=== PATIENT | female | born 1995 | race Caucasian/White ===

== ENCOUNTER 2016-11-09 15:26 | Outpatient (CLI) | payer OTHER ==
[2016-11-09 16:21] LABS: HEMATOCRIT 34.6 % (36.0-47.0); HEMOGLOBIN 11.8 g/dL (12.0-15.5); HGB HCT DIFFERENCE 0.8; LYMPHOCYTES % (AUTO) 14.2 % (13-45); MEAN CORPUSCULAR HEMOGLOBIN 29.9 pg (27.0-33.4); MEAN CORPUSCULAR HGB CONC 34.3 g/dL (32.0-36.0); MEAN CORPUSCULAR VOLUME 87 fl (80-97); MONOCYTES % (AUTO) 6.3 % (3-13); RED BLOOD COUNT 3.96 10^6/uL (3.72-5.28); RED CELL DISTRIBUTION WIDTH 13.8 % (11.5-14.0); SEGMENTED NEUTROPHILS % (AUTO) 78.4 % (42-78); WHITE BLOOD COUNT 13.5 10^3/uL (4.0-10.5)
[2016-11-09 16:22] LABS: ABSOLUTE BASOPHILS # (AUTO) 0.1 10^3/uL (0.0-0.2); ABSOLUTE EOSINOPHILS # (AUTO) 0.1 10^3/uL (0.0-0.6); ABSOLUTE LYMPHOCYTES (AUTO) 1.9 10^3/uL (0.5-4.7); ABSOLUTE MONOCYTES (AUTO) 0.9 10^3/uL (0.1-1.4); ABSOLUTE NEUT (AUTO) 10.6 10^3/uL (1.7-8.2); BASOPHILS % (AUTO) 0.5 % (0-2); EOSINOPHILS % (AUTO) 0.6 % (0-6)
[2016-11-09 16:40] LABS: ALANINE AMINOTRANSFERASE 22 U/L (9-52); ALBUMIN 3.5 g/dL (3.5-5.0); ALKALINE PHOSPHATASE 189 U/L (38-126); ANION GAP 11 (5-19); ASPARTATE AMINO TRANSFERASE 15 U/L (14-36); BILIRUBIN,DIRECT 0.1 mg/dL (0.0-0.4); BILIRUBIN,TOTAL 0.5 mg/dL (0.2-1.3); BLOOD UREA NITROGEN 13 mg/dL (7-20); CALCIUM 9.4 mg/dL (8.4-10.2); CARBON DIOXIDE 22 mmol/L (22-30); CHLORIDE 107 mmol/L (98-107); CREATININE RESULT 0.64 mg/dL (0.52-1.25); GLUCOSE 75 mg/dL (75-110); LDH 400 U/L (313-618); POTASSIUM 4.3 mmol/L (3.6-5.0); SODIUM 139.9 mmol/L (137-145); TOTAL PROTEIN 6.3 g/dL (6.3-8.2); URIC ACID 5.3 mg/dL (2.5-6.2)
[2016-11-09 17:57] LABS: APPEARANCE,URINE SLIGHTLY-CLOUDY; BILIRUBIN,URINE NEGATIVE (NEGATIVE); GLUCOSE, URINE NEGATIVE (NEGATIVE); KETONES,URINE NEGATIVE (NEGATIVE); LEUKOCYTE ESTERASE,URINE MODERATE (NEGATIVE); NITRITE,URINE NEGATIVE (NEGATIVE); PROTEIN,URINE NEGATIVE (NEGATIVE); URINE SPECIFIC GRAVITY 1.009; UROBILINOGEN,URINE NEGATIVE mg/dL (<2.0)
--- NOTE | 2016-11-09 18:02 | L&D General Admission ---
General Admit Datetime Report Generated by CPN: 11/09/2016 18:00 INFORMATION Patient Age: 21 (10/13/2016 16:08:QS system process) EDC: 12/20/2016 00:00 (11/09/2016 15:36:Mariza Pringle RN) : 1 (11/09/2016 15:36:Mariza Pringle RN) Para: 0 (11/09/2016 15:36:Mariza Pringle RN) Term: 0 (11/09/2016 15:36:Mariza Pringle RN) : 0 (11/09/2016 15:36:Mariza Pringle RN) Spontaneous Abortions: 0 (11/09/2016 15:36:Mariza Pringle RN) Induced Abortions: 0 (11/09/2016 15:36:Mariza Pringle RN) Livin (11/09/2016 15:36:Mariza Pringle RN) Cesareans: 0 (11/09/2016 15:36:Mariza Pringle RN) VBACs: 0 (11/09/2016 15:36:Mariza Pringle RN) Ectopic: 0 (11/09/2016 15:36:Mariza Pringle RN) Multiple Births: 0 (11/09/2016 15:36:Mariza Pringle RN) Baby, Number in Womb: 1 (11/09/2016 15:36:Mariza Pringle RN) CARE Primary [employer] Dispatcher: [employer] (11/09/2016 15:36:Mariza Pringle RN) Adequate Care: Yes (11/09/2016 15:36:Mariza Pringle RN) ALLERGIES Medication Allergies: No Known Drug Allergies (11/09/2016) (11/09/2016 15:46:QS system process) COMMUNICATION Primary Language: South African (11/09/2016 15:36:Mariza Pringle RN) Medical Tx Preferred Language: [place] African (11/09/2016 15:36:Mariza Pringle RN) Communication Barrier(s): None (11/09/2016 15:36:Mariza Pringle RN) DEMOGRAPHICS Address: [address] [place] [id number] (10/13/2016 16:08:QS system process) Zipcode: [address] (10/13/2016 16:08:QS system process) Home (10/13/2016 16:08:QS system process) N: [id number] (10/13/2016 16:08:QS system process) Next of Kin Name: JACINDA ZAMARRIPA (10/13/2016 16:08:QS system process) Next of Kin (10/13/2016 16:08:QS system process) Next of Kin Relationship: SPO (10/13/2016 16:08:QS system process) Date of : 1995 (10/13/2016 16:08:QS system process) Marital Status: (10/13/2016 16:08:QS system process) Sex: Female (10/13/2016 16:08:QS system process) Race: (10/13/2016 16:08:QS system process) Ethnicity: Non- or (10/13/2016 16:08:QS system process) Rastafarian: None (10/13/2016 16:08:QS system process) LABS Blood Type: A Positive (11/09/2016 15:36:Mariza Pringle RN) Antibody Screen: NEGATIVE (11/09/2016 15:36:Mariza Pringle RN) Hemoglobin: 11.8 L (11/09/2016 15:57:QS system process) Hematocrit: 34.6 L (11/09/2016 15:57:QS system process) MCV: 87 (11/09/2016 15:57:QS system process) RPR/VDRL: Nonreactive (11/09/2016 15:36:Mariza Pringle RN) HIV Exposure Test: Negative (11/09/2016 15:36:Mariza Pringle RN) Hepatitis B: Negative (11/09/2016 15:36:Mariza Pringle RN) Rubella: Non-Immune (11/09/2016 15:36:Mariza Pringle RN) MEDICAL HISTORY Diabetes Type: Gestational Diabetes (11/09/2016 15:36:Mariza Pringle RN) Other Medical Diseases: Yes (11/09/2016 15:36:Mariza Pringle RN) Details of Med/Surg Hx: GDM OBESITY (11/09/2016 15:36:Mariza Pringle RN)
[2016-11-09 18:18] LABS: URINE BARBITURATES SCREEN NEGATIVE; URINE METHADONE SCREEN NEGATIVE; URINE OPIATES LOW NEGATIVE; URINE PHENCYCLIDINE SCREEN NEGATIVE
--- NOTE | 2016-11-09 20:01 | L&D Flow Sheet ---
LD Flowsheet Datetime Report Generated by CPN: 11/09/2016 20:00 Datetime: 11/09/2016 19:52 NBP Sys/Terri/Mean (mmHg): 97 (QS system process) : 54 (QS system process) : 69 (QS system process) Pulse: 78 (QS system process) LaborFlag: Antepartum (QS system process) Datetime: 11/09/2016 19:38 NBP Sys/Terri/Mean (mmHg): 90 (QS system process) : 62 (QS system process) : 71 (QS system process) Pulse: 71 (QS system process) LaborFlag: Antepartum (QS system process) Datetime: 11/09/2016 19:23 NBP Sys/Terri/Mean (mmHg): 95 (QS system process) : 64 (QS system process) : 76 (QS system process) Pulse: 81 (QS system process) LaborFlag: Antepartum (QS system process) Datetime: 11/09/2016 19:15 Communication Comments: Report given to Esha Amos RN. Care relinquished at this time. (Marci Gillette RN) Datetime: 11/09/2016 19:00 Uterine Activity Monitor Mode: External (Marci Chellyfka, RN) Uterine Activity Monitor Mode: External; Palpation (Marci Gillette, RN) Monitor Interventions for UA: [place] Adjusted (Marci Gillette, RN) Frequency (min): UTD (Marci Spauldingfbita, RN) Frequency (min): No ctxs noted (Marci Johannahefka, RN) Quality: Mild (Marci Johannahefka, RN) Resting Tone (Palpate): Relaxed (Marci Gillette, RN) Contraction Comments: Pt states she feels occassional tightening but no pain. (Marci Spauldingfbita, RN) Assessment A Monitor Mode: External US (Marci Marhefka, RN) FHR Baseline Rate : 130 (Marci Marhefka, RN) FHR Baseline Changes: No Baseline Change (Marci Marhefka, RN) Variability: Moderate 6-25 bpm (Marci Marhefka, RN) Accelerations: 15X15 (Marci Marhefka, RN) Decelerations: None (Marci Marhefka, RN) Datetime: 11/09/2016 18:52 Patient Care I/O Interventions: Up to BR (Marci Marhefka, RN) Datetime: 11/09/2016 18:38 NBP Sys/Terri/Mean (mmHg): 98 (QS system process) : 60 (QS system process) : 74 (QS system process) Pulse: 82 (QS system process) LaborFlag: Antepartum (QS system process) Datetime: 11/09/2016 18:30 Uterine Activity Monitor Mode: External; Palpation (Marci Gillette RN) Frequency (min): 4-7 (Marci Gillette RN) Quality: Mild (Marci Gillette RN) Duration (sec): 60-100 (Marci Gillette RN) Resting Tone (Palpate): Relaxed (Marci Marhefka, RN) Assessment A Monitor Mode: External US (Marci Marhefka, RN) FHR Baseline Rate : 135 (Marci Marhefka, RN) FHR Baseline Changes: No Baseline Change (Marci Marhefka, RN) Variability: Moderate 6-25 bpm (Marci Marhefka, RN) Accelerations: 15X15 (Marci Marhefka, RN) Decelerations: None (Marci Marhefka, RN) Datetime: 11/09/2016 18:23 NBP Sys/Terri/Mean (mmHg): 103 (QS system process) : 59 (QS system process) : 76 (QS system process) Pulse: 76 (QS system process) LaborFlag: Antepartum (QS system process) Datetime: 11/09/2016 18:13 Provider Reviewed Strip: Yes (Marci Gillette RN) Communication Communication: Report Given to @ Dr. Frank (Marci Gillette RN) Notification Reason: Status Update; Status; Labor Status; Uterine Activity; Pain; Lab/Diagnostic Study (Marci Gillette RN) Communication Comments: Dr. Frank on notified of late deceleration and lab results, order received to watch patient for 2 more hours after late deceleration and discharge home if no more lates occure in that time. (Marci Gillette RN) Datetime: 11/09/2016 18:08 NBP Sys/Terri/Mean (mmHg): 113 (QS system process) : 68 (QS system process) : 83 (QS system process) Pulse: 83 (QS system process) LaborFlag: Antepartum (QS system process) Datetime: 11/09/2016 18:00 Uterine Activity Monitor Mode: External (Marci Marhefka, RN) Frequency (min): 8 (Marci Marhefka, RN) Quality: Mild (Marci Marhefka, RN) Duration (sec): 80-150 (Marci Marhefka, RN) Resting Tone (Palpate): Relaxed (Marci Marhefka, RN) Assessment A Monitor Mode: External US (Marci Marhefka, RN) FHR Baseline Rate : 135 (Marci Marhefka, RN) FHR Baseline Changes: No Baseline Change (Marci Marhefka, RN) Variability: Moderate 6-25 bpm (Marci Marhefka, RN) Accelerations: 15X15 (Marci Marhefka, RN) Decelerations: None (Marci Marhefka, RN) Datetime: 11/09/2016 17:52 NBP Sys/Terri/Mean (mmHg): 107 (QS system process) : 72 (QS system process) : 84 (QS system process) Pulse: 76 (QS system process) LaborFlag: Antepartum (QS system process) Datetime: 11/09/2016 17:37 NBP Sys/Terri/Mean (mmHg): 111 (QS system process) : 75 (QS system process) : 85 (QS system process) Pulse: 75 (QS system process) LaborFlag: Antepartum (QS system process) Datetime: 11/09/2016 17:30 Uterine Activity Monitor Mode: External (Marci Marhefka, RN) Frequency (min): 6-7 (Marci Marhefka, RN) Quality: Mild (Marci Marhefka, RN) Duration (sec): 70-100 (Marci Marhefka, RN) Resting Tone (Palpate): Relaxed (Marci Marhefka, RN) Assessment A Monitor Mode: External US (Marci Marhefka, RN) FHR Baseline Rate : 140 (Marci Marhefka, RN) FHR Baseline Changes: No Baseline Change (Marci Marhefka, RN) Variability: Minimal - Undetectable to <=5 bpm (Marci Marhefka, RN) Accelerations: 15X15 (Marci Marhefka, RN) Decelerations: Late (Marci Marhefka, RN) Datetime: 11/09/2016 17:22 NBP Sys/Terri/Mean (mmHg): 110 (QS system process) : 73 (QS system process) : 87 (QS system process) Pulse: 72 (QS system process) LaborFlag: Antepartum (QS system process) Datetime: 11/09/2016 17:07 NBP Sys/Terri/Mean (mmHg): 110 (QS system process) : 73 (QS system process) : 87 (QS system process) Pulse: 71 (QS system process) LaborFlag: Antepartum (QS system process) Datetime: 11/09/2016 17:00 Uterine Activity Monitor Mode: External; Palpation (Marci Marhefka, RN) Frequency (min): 4 (Marci Marhefka, RN) Quality: Mild (Marci Marhefka, RN) Duration (sec): 80-100 (Marci Marhefka, RN) Resting Tone (Palpate): Relaxed (Marci Marhefka, RN) Assessment A Monitor Mode: External US (Marci Marhefka, RN) FHR Baseline Rate : 135 (Marci Marhefka, RN) FHR Baseline Changes: No Baseline Change (Marci Marhefka, RN) Variability: Moderate 6-25 bpm (Marci Marhefka, RN) Accelerations: 15X15 (Marci Marhefka, RN) Decelerations: None (Marci Marhefka, RN) Datetime: 11/09/2016 16:52 NBP Sys/Terri/Mean (mmHg): 111 (QS system process) : 73 (QS system process) : 86 (QS system process) Pulse: 75 (QS system process) LaborFlag: Antepartum (QS system process) Datetime: 11/09/2016 16:50 Monitor Interventions for UA: [place] Adjusted (Marci Marhefka, RN) Datetime: 11/09/2016 16:42 Vaginal Exam Vaginal Bleeding: None (Marci Gillette RN) Cervix, Consistency: Moderate (Marci Gillette RN) Cervix, Position: Posterior (Marci Gillette RN) Vaginal Exam Comments: ft/thick/high (Marci Gillette RN) Datetime: 11/09/2016 16:39 NBP Sys/Terri/Mean (mmHg): 113 (QS system process) : 71 (QS system process) : 86 (QS system process) Pulse: 75 (QS system process) Temperature (F): 98.2 (Marci Gillette RN) Temperature (C): 36.8 (QS system process) Temperature Route: Oral (Marci Gillette RN) LaborFlag: Antepartum (QS system process) Datetime: 11/09/2016 16:30 Uterine Activity Monitor Mode: External; Palpation (Marci Marhefka, RN) Frequency (min): 7 (Marci Marhefka, RN) Quality: Mild (Marci Marhefka, RN) Duration (sec): 60-100 (Marci Marhefka, RN) Resting Tone (Palpate): Relaxed (Marci Marhefka, RN) Assessment A Monitor Mode: External US (Marci Marhefka, RN) FHR Baseline Rate : 140 (Marci Marhefka, RN) FHR Baseline Changes: No Baseline Change (Marci Marhefka, RN) Variability: Moderate 6-25 bpm (Marci Marhefka, RN) Accelerations: 15X15 (Marcichris Spauldingfbita, RN) Decelerations: None (Marcichris Spencerhelder, RN) Pain Pain Scale: 1 (Marci Gillette, RN) Pain Presence: Intermittent (Marci Spauldingfbita, RN) Pain Type: Pressure (Marci Spauldingfbita, RN) Pain Location: Abdomen (Marci Gillette, RN) Pain Goal: 0 (Marci Gillette, RN) Pain Relief Measures: Comfort Measures (Marci Spauldingfbita, RN) Pain Coping: Talking Through Contractions (Marci Gillette, RN) LaborFlag: Antepartum (QS system process) Datetime: 11/09/2016 16:20 Patient Care I/O Interventions: Up to BR (Marci Marhefka, RN) Datetime: 11/09/2016 16:07 NBP Sys/Terri/Mean (mmHg): 103 (QS system process) : 75 (QS system process) : 85 (QS system process) Pulse: 69 (QS system process) LaborFlag: Antepartum (QS system process) Datetime: 11/09/2016 16:00 Uterine Activity Monitor Mode: External; Palpation (Marci Marhefka, RN) Frequency (min): 6-11 (Marci Marhefka, RN) Quality: Mild (Marci Marhefka, RN) Duration (sec): 50-100 (Marci Marhefka, RN) Resting Tone (Palpate): Relaxed (Marci Marhefka, RN) Assessment A Monitor Mode: External US (Marci Marhefka, RN) FHR Baseline Rate : 140 (Marci Marhefka, RN) FHR Baseline Changes: No Baseline Change (Marci Marhefka, RN) Variability: Moderate 6-25 bpm (Marci Marhefka, RN) Accelerations: 15X15 (Marci Marhefka, RN) Decelerations: None (Marci Marhefka, RN) Datetime: 11/09/2016 15:54 NBP Sys/Terri/Mean (mmHg): 102 (QS system process) : 71 (QS system process) : 83 (QS system process) Pulse: 72 (QS system process) LaborFlag: Antepartum (QS system process) Datetime: 11/09/2016 15:37 NBP Sys/Terri/Mean (mmHg): 108 (QS system process) : 70 (QS system process) : 85 (QS system process) Pulse: 76 (QS system process) LaborFlag: Antepartum (QS system process) Datetime: 11/09/2016 15:30 Vital Signs Stage of : Antepartum (Marci Gillette, RN) Datetime: 11/09/2016 15:23 NBP Sys/Terri/Mean (mmHg): 119 (QS system process) : 55 (QS system process) : 78 (QS system process) Pulse: 92 (QS system process) Datetime: 11/09/2016 15:20 Teaching Instructional Method: Verbal; Patient Instructed; Verbalized Understanding (Marci Gillette RN) Plan of Care: Plan of Care Discussed (Marci Gillette RN) Unit Routine: [place] to Room; Call [place]; Bed; Unit Personnel; Monitoring; Bathroom Privileges (Marci Gillette RN)
--- NOTE | 2016-11-09 20:26 | Non Stress Test Report ---
Non Stress Test Datetime Report Generated by CPN: 11/09/2016 20:23 DEMOGRAPHIC EGA NST: 34.1 EGA NST: 34.1 INDICATION Indication for Study: Ordered by Provider MONITORING Monitor Explained: Monitor Explained; Test Explained; Patient Verbalized Understanding Time on Monitor: 11/09/2016 15:21 Time on Monitor: 11/09/2016 15:21 Time off Monitor: 11/09/2016 19:55 NST Duration: 274 NST INTERVENTIONS NST Interventions: PO Hydration; Reposition Patient Physician Notified NST: Dr frank BABY A: [id number] BABY A Movement : Present Contraction Frequency : irregular FHR Baseline : 135 Accelerations : 15X15 Decelerations : Late Variability : Moderate 6-25bpm NST Review: Meets Criteria for Reactive NST NST Review and Verified By : MARII Ring NST Results: Reactive NST COMMENTS NST Comments: one late decel noted, Dr Frank aware. NST REPORT Report Trigger: Send Report
== END 2016-11-09 20:06 | disposition home or self-care (01) ==
LOC: LC 15:26
PROVIDERS: ATTEND Obstetrics & Gynecology
PROC: 4A1HXCZ Monitoring of Products of Conception, Cardiac Rate, External Approach (ICD-10-PCS; principal; 2016-11-09)
DX: O47.03 False labor before 37 completed weeks of gestation, third trimester (principal); Z3A.34 34 weeks gestation of pregnancy
CPT/HCPCS: 36415; 59025; 80053; 80307; 81001; 83615; 84550; 85025

== ENCOUNTER 2016-11-18 10:14 | Outpatient (CLI) | payer OTHER | END 2016-11-18 10:48 | disposition home or self-care (01) | LOC: LC 10:14 | PROVIDERS: ATTEND Obstetrics & Gynecology | PROC: 4A1HXCZ Monitoring of Products of Conception, Cardiac Rate, External Approach (ICD-10-PCS; principal; 2016-11-18) | DX: O13.3 Gestational [pregnancy-induced] hypertension without significant proteinuria, third trimester (principal); Z3A.35 35 weeks gestation of pregnancy | CPT/HCPCS: 59025 ==

== ENCOUNTER 2016-12-14 07:07 | Inpatient (IN) | payer OTHER ==
[2016-12-14] MEDS ORDERED: RINGERS SOLUTION,LACTATED 1,000 ML IV PRN (08:11)
[2016-12-14] MEDS ORDERED: OXYTOCIN/NORMAL SALINE 1,000 ML IV PRN (08:11)
[2016-12-14] MEDS ORDERED: RINGERS SOLUTION,LACTATED 300 ML IV ONE (08:11)
[2016-12-14] MEDS ORDERED: OXYTOCIN/NORMAL SALINE 20 UNIT/1,000 ML RTUINJ ONE (08:16)
[2016-12-14 09:32] LABS: ABSOLUTE EOSINOPHILS # (AUTO) 0.1 10^3/uL (0.0-0.6); ABSOLUTE MONOCYTES (AUTO) 0.7 10^3/uL (0.1-1.4); ABSOLUTE NEUT (AUTO) 9.5 10^3/uL (1.7-8.2); BASOPHILS % (AUTO) 0.4 % (0-2); EOSINOPHILS % (AUTO) 0.6 % (0-6); HEMATOCRIT 36.5 % (36.0-47.0); HEMOGLOBIN 12.4 g/dL (12.0-15.5); HGB HCT DIFFERENCE 0.7; LYMPHOCYTES % (AUTO) 16.3 % (13-45); MEAN CORPUSCULAR HGB CONC 33.9 g/dL (32.0-36.0); MEAN CORPUSCULAR VOLUME 88 fl (80-97); RED BLOOD COUNT 4.13 10^6/uL (3.72-5.28); RED CELL DISTRIBUTION WIDTH 14.3 % (11.5-14.0); SEGMENTED NEUTROPHILS % (AUTO) 76.7 % (42-78); WHITE BLOOD COUNT 12.4 10^3/uL (4.0-10.5)
--- NOTE | 2016-12-14 12:38 | L&D Progress Notes ---
PROGRESS NOTES Datetime Report Generated by CPN: 12/14/2016 12:38 PROGRESS NOTE Impression: Reassuring Heart Rate Procedures: Artificial ROM; Scalp Electrode; Sterile Vag Exam Plan: Continue Present Management; Induction Informed Consent Obtained: Vaginal Delivery Vital Signs : Reviewed Comment: Pt comforable with ctx on ball AROM, clear FSE placed without diffciutly Will continue present mgmt. VAGINAL EXAM Dilatation: 3 Effacement: 80 Station: -2 Contractions: irregular MEMBRANES Membranes: Ruptured Membranes: Intact Amniotic Fluid Color: Clear FETUS A FHR - Baseline: 155 Monitoring: External US Variability: Moderate 6-25bpm FHR Category: Category I : 39.1 Estimated Weight (gm): 3500 Presentation: Vertex SIGNATURE SIGNATURE: [id number] SIGNATURE: ,[id number] SIGNATURE: ,[id number] Assignment: Radha Paris MD Signature: with User ID: [email or web address] : with User ID: [email or web address] : I personally evaluated and examined the patient in conjunction with the MLP and agree with the assessment, treatment plan and disposition.
--- NOTE | 2016-12-14 14:12 | L&D Progress Notes ---
PROGRESS NOTES Datetime Report Generated by CPN: 12/14/2016 14:12 PROGRESS NOTE Impression: Normal Progression of Labor; Reassuring Heart Rate; Reactive Non Stress Test Procedures: Artificial ROM; Intrauterine Pressure Catheter; Sterile Vag Exam Plan: Continue Present Management; Induction Informed Consent Obtained: Vaginal Delivery; Risks, Benefits and Alternatives Discussed Vital Signs : Reviewed; Within Normal Limits Comment: Here for IOL due to GDM. EFW from US on 12/06 reviewed. Reassuring FWB at this time. IUPC placed due to unable to evaluate contractions. REviewed progress of labor. Reviewed pain options. She desires Epidural. Continue present management and anticiapte . VAGINAL EXAM Dilatation: 4 Effacement: 80 Station: -2 FETUS A FHR - Baseline: 130 Monitoring: Internal Scalp Electrode Variability: Moderate 6-25bpm Accelerations: 15X15 Decelerations: None FHR Category: Category I Estimated Weight (gm): 3500 FETUS C SIGNATURE: [id number];[id number] Signature: with User ID: [email or web address]
[2016-12-14] MEDS ORDERED: EPHEDRINE SULFATE INJ 50 MG/1 ML AMPULE ONE (14:26)
[2016-12-14] MEDS ORDERED: BUPIVACAINE HCL 0.25 % INJ/PF (2.5 MG/1 ML) 30 ML VIAL ONE (14:26)
[2016-12-14] MEDS ORDERED: FENTANYL/BUPIVACAINE/NS/PF 200 MCG/100 ML RTUINJ EPI ONE (14:26)
[2016-12-14 14:35] LABS: APPEARANCE,URINE CLOUDY; BILIRUBIN,URINE NEGATIVE (NEGATIVE); GLUCOSE, URINE NEGATIVE (NEGATIVE); KETONES,URINE NEGATIVE (NEGATIVE); LEUKOCYTE ESTERASE,URINE LARGE (NEGATIVE); NITRITE,URINE NEGATIVE (NEGATIVE); PROTEIN,URINE 30 mg/dL (NEGATIVE); URINE SPECIFIC GRAVITY 1.025; UROBILINOGEN,URINE NEGATIVE mg/dL (<2.0)
[2016-12-14 14:53] LABS: URINE BARBITURATES SCREEN NEGATIVE; URINE METHADONE SCREEN NEGATIVE; URINE OPIATES LOW NEGATIVE; URINE PHENCYCLIDINE SCREEN NEGATIVE
--- NOTE | 2016-12-14 17:00 | L&D Progress Notes ---
PROGRESS NOTES Datetime Report Generated by CPN: 12/14/2016 17:00 PROGRESS NOTE Impression: Normal Progression of Labor; Reassuring Heart Rate Procedures: Sterile Vag Exam Plan: Continue Present Management; Induction; Anticipate Vaginal Delivery Informed Consent Obtained: Vaginal Delivery; Induction of Labor; Risks, Benefits and Alternatives Discussed Vital Signs : Reviewed; Within Normal Limits Comment: Pitocin at 20units since approx 10 am this morning. Pt was IOL for GDM. cvx now 4-5/-1 with ctx and -2 without. head still high and pt with abnl ctx pattern. WIll stop pitocin and given 250ml bolus of D5W. Then after 1 hour restart pitocin and attempt to get pt into a better ctx pattern. Concern for CPD but making some change and will continue to monitor. VAGINAL EXAM Dilatation: 5 Effacement: 80 Station: -2 MEMBRANES Membranes: Ruptured FETUS A FHR - Baseline: 125 Monitoring: Internal Scalp Electrode Variability: Moderate 6-25bpm Accelerations: 15X15 Decelerations: Variable FHR Category: Category II Estimated Weight (gm): 3600 FETUS C SIGNATURE: [id number];[id number] Signature: with User ID: [email or web address]
[2016-12-15] MEDS ORDERED: FENTANYL/BUPIVACAINE/NS/PF 200 MCG/100 ML RTUINJ EPI ONE (01:40)
[2016-12-15] MEDS ORDERED: MISOPROSTOL 0.2 MG TABLET ONE (02:03)
[2016-12-15] MEDS ORDERED: OXYTOCIN/NORMAL SALINE 20 UNIT/1,000 ML RTUINJ ONE (02:03)
[2016-12-15] MEDS ORDERED: LIDOCAINE 1% INJ-PF (10 MG/ML) 30 ML SDV ONE (02:03)
[2016-12-15] MEDS ORDERED: DIPHENHYDRAMINE HCL 25 MG CAPSULE PO PRN (04:05)
[2016-12-15] MEDS ORDERED: MAGNESIUM HYDROXIDE SUSP 30 ML UDCUP PO PRN (04:05)
[2016-12-15] MEDS ORDERED: PSEUDOEPHEDRINE HCL 30 MG TABLET PO PRN (04:05)
[2016-12-15] MEDS ORDERED: GLYCERIN/WITCH HAZEL LEAF 1 EACH MED..PAD TP PRN (04:05)
[2016-12-15] MEDS ORDERED: ACETAMINOPHEN 650 MG SUPP.RECT PR PRN (04:05)
[2016-12-15] MEDS ORDERED: MEASLES,MUMPS&RUBELLA VACC/PF 0.5 ML VIAL SUBCUT PRN (04:05)
[2016-12-15] MEDS ORDERED: DIPH/PERTUSS(ACELL)/TETANUS VAC/PF 0.5 ML SYR (>=10YO) IM PRN (04:05)
[2016-12-15] MEDS ORDERED: PROMETHAZINE HCL INJ 25 MG/1 ML VIAL IV PRN (04:05)
[2016-12-15] MEDS ORDERED: OXYTOCIN/NORMAL SALINE 1,000 ML IV PRN (04:05)
[2016-12-15] MEDS ORDERED: DIBUCAINE 1% OINTMENT 28 GM TP PRN (04:05)
[2016-12-15] MEDS ORDERED: ZOLPIDEM TARTRATE 5 MG TABLET PO PRN (04:05)
[2016-12-15] MEDS ORDERED: NA PHOS,M-B/NA PHOS,DI-BA (ADULT) 133 ML ENEMA PR PRN (04:05)
[2016-12-15] MEDS ORDERED: PROMETHAZINE HCL 25 MG SUPP.RECT PR PRN (04:05)
[2016-12-15] MEDS ORDERED: PROMETHAZINE HCL 25 MG TABLET PO PRN (04:05)
[2016-12-15] MEDS ORDERED: ACETAMINOPHEN WITH CODEINE #3 TABLET PO PRN (04:05)
--- NOTE | 2016-12-15 06:17 | Delivery Summary ---
Del Sum A-C Datetime Report Generated by CPN: 12/15/2016 06:17 DELIVERY PERSONNEL DELIVERY PERSONNEL: [id number];[id number];[id number] Delivery Doctor:: Radha Paris MD Labor and Delivery Nurse:: Mimi Atwood RNsonar watchstander Nurse:: Jolie Renee RN Showroom Salesperson/ALUMINUM POLISHER: Priscilla Clark, ST MATERNAL INFORMATION Delivery Anesthesia: Epidural Medications After Delivery: Pitocin Drip 20 Units/1000ml NSS Estimated Blood Loss (ml): 250 Maternal Complications: None Provider Comments: VMI delivered in MORGAN presentation with loose nuchal cord. Shoulders and body delivered without difficulty. Cord doubly clamped and cut and infant to maternal abdomen for NRP. Placenta delivered intact spontaneously. Laceration repaired in usual fashion and good hemostasis. FF at U. Mother and baby stable upon provider leaving the room. LABOR SUMMARY EDC: 12/20/2016 00:00 No. Babies in Womb: 1 Attempted: No Labor Anesthesia: Epidural LABOR INFORMATION Reason for Induction: Maternal Diabetes Onset of Labor: 12/14/2016 12:31 Complete Dilatation: 12/15/2016 01:49 Oxytocin: Induction Group B Beta Strep: negative Antibiotics # of Doses: 0 Steroids Given: None Reason Steroids Not Administered: Not Applicable MEMBRANES Membranes Rupture Method: Artificial Rupture of Membranes: 12/14/2016 12:31 Length of Rupture (hr): 15.28 Amniotic Fluid Color: Clear Amniotic Fluid Amount: Small Amniotic Fluid Odor: None STAGES OF LABOR Stage 1 hr: 13 Stage 1 min: 18 Stage 2 hr: 1 Stage 2 min: 59 Stage 3 hr: 0 Stage 3 min: 11 Total Time in Labor hr: 15 Total Time in Labor min: 28 VAGINAL DELIVERY Episiotomy: None Laceration Extension: Second Degree Laceration Type: Perineal Laceration Repair: Yes Laceration Repair Note: 2nd degree laceration repaired in the usual fashion. good hemostasis. Sponge Count Correct: N/A Sharps Count Correct: Yes CSECTION DELIVERY Primary Indication: N/A Secondary Indication: N/A CSection Incidence: N/A Labor: N/A Elective: N/A CSection Incision: N/A BABY A INFORMATION Infant Delivery Date/Time: 12/15/2016 03:48 Method of Delivery: Vaginal Born in Route : No : N/A Forceps: N/A Vacuum Extraction: N/A Shoulder Dystocia : No PRESENTATION/POSITION BABY A Presentation: Cephalic Cephalic Presentation: Vertex Vertex Position: Left Occipital Anterior Breech Presentation: N/A PLACENTA INFORMATION BABY A Placenta Delivery Time : 12/15/2016 03:59 Placenta Method of Delivery: Spontaneous Placenta Status: Delivered SCORES BABY A Heart Rate 1 min: >100 bpm Resp Effort 1 min: Good Cry Reflex Irritability 1 min: Cough or Sneeze or Pulls Away Muscle Tone 1 min: Active Motion Color 1 min: Blue/Pale Resuscitation Effort 1 min: Tactile Stimulation SCORE 1 MIN: 8 Heart Rate 5 min: >100 bpm Resp Effort 5 min: Good Cry Reflex Irritability 5 min: Cough or Sneeze or Pulls Away Muscle Tone 5 min: Active Motion Color 5 min: Body [place], Extremities Blue Resuscitation Effort 5 min: Tactile Stimulation SCORE 5 MIN: 9 INFORMATION BABY A Gestational Age at Delivery: 39.2 Gestational Status: Full Term- 39- 40.6 Weeks Outcome : Liveborn Infant Condition : Stable Sex: Male IDENTIFICATION BABY A Infant Verification Date/Time: 12/15/2016 03:56 ID Band Number: [id number] Mother's Name Verified: Yes Infant RN Verifying : , RN Additional Verifying Personnel: Mariana WEIGHT/LENGTH BABY A Birthweight (gm): 3350 Weight (lb): 7 Weight (oz): 6 Infant Length (in): 20.75 Infant Length (cm): 52.71 CORD INFORMATION BABY A No. Cord Vessels: 3 Nuchal Cord : Around Neck x1, Loose Cord Blood Taken: Yes-For Storage (Mom's Blood type +) Suction: Mouth; Nose ASSESSMENT BABY A Infant Complications: Multiple Late Decels Physical Findings at Delivery: Molding of the Head Respirations: Appears Normal Skin to Skin: Yes Skin to Skin Time (min): 90 Director Of Public Works/ALS Called : No Care By: K Thelma, RN Transferred To: Remains with Mother BABY B INFORMATION : N/A SIGNATURES Signature: with User ID: [email or web address] : I personally evaluated and examined the patient in conjunction with the MLP and agree with the assessment, treatment plan and disposition.
--- NOTE | 2016-12-15 07:02 | Admission Physical ---
Datetime Report Generated by CPN: 12/15/2016 07:02 CURRENT ADMISSION Chief Complaint: Scheduled Induction of Labor Indication for Induction: Maternal Diabetes Indication for Induction- Other: GDM on Glyburide Admit Plan: Admit to Unit; Initiate Labor Induction Protocol ALLERGIES Medication Allergies: No Medication Allergies: No Known Drug Allergies (12/14/2016) Medication Allergies: No Known Drug Allergies (11/18/2016) Medication Allergies: No Known Drug Allergies (11/09/2016) Latex: No Latex Allergies Food Allergies: None Environmental Allergies: None OBSTETRICAL HISTORY EDC: 12/20/2016 00:00 : 1 Para: 0 Term: 0 : 0 SAB: 0 IAB: 0 Ectopic: 0 Livin Cesareans: 0 VBACs: 0 Multiple Births: 0 Gestational Diabetes: Yes Rh Sensitization: No Incompetent Cervix: No DAISY: No Infertility: No ART Treatment: No Uterine Anomaly: No IUGR: No Hx Previous C/S: No Macrosomia: No Hx Loss/Stillborn: No PIH: No Hx : No Placenta Previa/Abruption: No Depression/PP Depression: No PTL/PROM: No Post Hemorrhage: No Current Procedures: Ultrasound SEE RECORDS Alcohol: No Marijuana : No Cocaine: No Other Illicit Drugs: No Cigarettes: Never Smoker. [id number] MEDICAL HISTORY Diabetes: Yes Diabetes Type: Gestational Diabetes Blood Transfusion: No Pulmonary Disease (Asthma, TB): No Breast Disease: No Hypertension: No Dog Catcher Surgery: No Heart Disease: No Hosp/Surgery: No Autoimmune Disorder: No Anesthetic Complications: No Kidney Disease: No Abnormal Pap Smear: No Neuro/Epilepsy: No Psychiatric Disorders: No Other Medical Diseases: Yes Hepatitis/Liver Disease: No Significant Family History: No Varicosities/Phlebitis: No Trauma/Violence : No Thyroid Dysfunction: No Medical History Comments: GDM OBESITY INFECTIOUS HISTORY Gonorrhea: No Genital Herpes: No Chlamydia: No Tuberculosis: No Syphilis: No Hepatitis: No HIV/AIDS Exposure: No Rash or Viral Illness: No HPV: No PHYSICAL EXAM General: Normal HEENT: Normal Neurologic: Normal Thyroid: Deferred Heart: Normal Lungs: Normal Breast: Deferred Back: Normal Abdomen: Normal Genitourinary Exam: Normal Extremities: Normal DTRs: Normal Pelvic Type: Adequate Physical Exam Comments: Gravid Vital Signs: Reviewed; Within Normal Limits VAGINAL EXAM Dilatation: 5 Dilatation: 4 Dilatation: 3 Effacement: 80 Effacement: 80 Effacement: 80 Station: -2 Station: -2 Station: -2 Contraction Comments: irregular MEMBRANES Membranes: Ruptured Membranes: Ruptured Membranes: Intact Amniotic Fluid Color: Clear FETUS A EGA: 39.1 Monitoring: External US FHR- Baseline: 135 Variability: Moderate 6-25bpm Accelerations: 15X15 FHR Category: Category I Estimated Weight (gm): 3600 Estimated Weight (gm): 3500 Estimated Weight (gm): 3500 Presentation: Vertex Admit Comment: G1 GDM on Glyburide-IOL Obesity Antepartum records available PLANS FOR LABOR AND DELIVERY Labor and Delivery: None Pain Management: Epidural Feeding Preference: Breast Benefit of Breast Feed Discussed: Yes Circumcision: Yes INFORMED CONSENT Informed Consent Obtained: Vaginal Delivery; Induction of Labor; Risks, Benefits and Alternatives Discussed Informed Consent Obtained: Vaginal Delivery; Risks, Benefits and Alternatives Discussed Informed Consent Obtained: Vaginal Delivery Assignment: Radha Paris MD Signature: with User ID: Armida : with User ID: Armida : I personally evaluated and examined the patient in conjunction with the MLP and agree with the assessment, treatment plan and disposition.
[2016-12-15] MEDS: IBUPROFEN 800 MG TABLET PO SCH ×3 (07:40→21:41)
[2016-12-15] MEDS: BENZOCAINE/MENTHOL AEROSOL SPRAY 56 ML TOP PRN (07:46)
--- NOTE | 2016-12-15 09:01 | PDOC PROGRESS REPORT ---
Subjective-OB Subjective: Post Delivery Day: 1 21 year old. Denies any needs at this time, voiding without difficulty, lochia stable, tolerating diet. Physical Exam (OB) Vital Signs: Temp Pulse Resp BP Pulse Ox 98.1 F 100 18 103/65 98 12/15/16 06:07 12/15/16 06:07 12/15/16 06:07 12/15/16 06:07 12/15/16 06:07 Intake & Output 12/14/16 12/15/16 12/16/16 06:59 06:59 06:59 Weight 121.65 kg - Episiotomy/Laceration Site Condition: Well Approximated - Lochia Lochia Amount: Small 10-25 ml - Abdomen Description: Soft, Round Hernia Present: No Bowel Sounds: Normoactive Fundal Description: Firm Fundal Height: u/u - u/2 Objective-Diagnostic Laboratory: 12/14/16 08:49 12/14/16 12/14/16 12/14/16 08:49 08:49 14:00 WBC 12.4 H RBC 4.13 Hgb 12.4 Hct 36.5 MCV 88 MCH 30.0 MCHC 33.9 RDW 14.3 H Plt Count 173 Seg Neutrophils % 76.7 Lymphocytes % 16.3 Monocytes % 6.0 Eosinophils % 0.6 Basophils % 0.4 Absolute Neutrophils 9.5 H Absolute Lymphocytes 2.0 Absolute Monocytes 0.7 Absolute Eosinophils 0.1 Absolute Basophils 0.0 Urine Color YELLOW Urine Appearance CLOUDY Urine pH 6.0 Ur Specific [place] 1.025 Urine Protein 30 H Urine Glucose (UA) NEGATIVE Urine Ketones NEGATIVE Urine Blood NEGATIVE Urine Nitrite NEGATIVE Ur Leukocyte Esterase LARGE H Blood Type A POSITIVE Antibody Screen NEGATIVE Assessment and Plan(PN) - Assessment and Plan (1) Vaginal delivery Is this a current diagnosis for this admission?: YesPlan: routine pp care (2) GDM, class A2 Is this a current diagnosis for this admission?: YesPlan: pp bs check yearly f/u - Time Spent with Patient Time with patient: Less than 15 minutes Critical Time spent with patient: Less than 15 minutes Medications reviewed and adjusted accordingly: Yes - Disposition Anticipated Discharge: Home Within: within 24 hours
[2016-12-15] MEDS: FERROUS SULFATE 325 MG TABLET PO SCH ×2 (09:15→17:20)
[2016-12-15] MEDS: FAMOTIDINE 20 MG TABLET PO SCH ×2 (09:15→21:41)
[2016-12-15] MEDS: DOCUSATE SODIUM 100 MG CAPSULE PO SCH ×2 (09:15→17:19)
[2016-12-15] MEDS: PRENATAL VITAMIN W-O CA NO5/FE FUMARATE/FA CAPSULE PO SCH (09:15)
[2016-12-15] MEDS: SENNOSIDES/DOCUSATE 8.6-50 MG 1 EACH TABLET PO SCH (09:15)
[2016-12-15 14:25] LABS: HEMATOCRIT 33.3 % (36.0-47.0); HEMOGLOBIN 10.9 g/dL (12.0-15.5); HGB HCT DIFFERENCE -0.6; MEAN CORPUSCULAR HEMOGLOBIN 29.3 pg (27.0-33.4); MEAN CORPUSCULAR HGB CONC 32.6 g/dL (32.0-36.0); MEAN CORPUSCULAR VOLUME 90 fl (80-97); RED CELL DISTRIBUTION WIDTH 14.4 % (11.5-14.0); WHITE BLOOD COUNT 22.5 10^3/uL (4.0-10.5)
[2016-12-15] MEDS: ACETAMINOPHEN WITH CODEINE #3 TABLET PO PRN (20:54)
[2016-12-16] MEDS: IBUPROFEN 800 MG TABLET PO SCH ×3 (05:51→22:01)
[2016-12-16 06:44] LABS: ABSOLUTE BASOPHILS # (AUTO) 0.1 10^3/uL (0.0-0.2); ABSOLUTE EOSINOPHILS # (AUTO) 0.2 10^3/uL (0.0-0.6); ABSOLUTE MONOCYTES (AUTO) 1.2 10^3/uL (0.1-1.4); ABSOLUTE NEUT (AUTO) 12.3 10^3/uL (1.7-8.2); BASOPHILS % (AUTO) 0.5 % (0-2); HEMATOCRIT 30.4 % (36.0-47.0); HEMOGLOBIN 10.2 g/dL (12.0-15.5); HGB HCT DIFFERENCE 0.2; LYMPHOCYTES % (AUTO) 18.2 % (13-45); MEAN CORPUSCULAR HEMOGLOBIN 29.9 pg (27.0-33.4); MEAN CORPUSCULAR HGB CONC 33.7 g/dL (32.0-36.0); MEAN CORPUSCULAR VOLUME 89 fl (80-97); RED BLOOD COUNT 3.43 10^6/uL (3.72-5.28); RED CELL DISTRIBUTION WIDTH 14.5 % (11.5-14.0); SEGMENTED NEUTROPHILS % (AUTO) 73.3 % (42-78); WHITE BLOOD COUNT 16.7 10^3/uL (4.0-10.5)
[2016-12-16] MEDS: FAMOTIDINE 20 MG TABLET PO SCH ×2 (09:04→22:02)
[2016-12-16] MEDS: FERROUS SULFATE 325 MG TABLET PO SCH ×2 (09:04→17:58)
[2016-12-16] MEDS: DOCUSATE SODIUM 100 MG CAPSULE PO SCH ×2 (09:04→17:58)
[2016-12-16] MEDS: SENNOSIDES/DOCUSATE 8.6-50 MG 1 EACH TABLET PO SCH (09:05)
[2016-12-16] MEDS: PRENATAL VITAMIN W-O CA NO5/FE FUMARATE/FA CAPSULE PO SCH (09:05)
--- NOTE | 2016-12-16 12:00 | PDOC PROGRESS REPORT ---
Subjective-OB Subjective: Post Delivery Day: 2 21 year old s/p pp2. Ambulating and voiding without difficulty. Having a hard time with and requiring help to get latch. Denies any other needs at this time Physical Exam (OB) Vital Signs: Temp Pulse Resp BP Pulse Ox 97.7 F 105 H 18 117/88 H 100 12/16/16 07:26 12/16/16 07:26 12/16/16 07:26 12/16/16 07:26 12/16/16 07:26 Intake & Output 12/15/16 12/16/16 12/17/16 06:59 06:59 06:59 Intake Total 600 Balance 600 Weight 121.65 kg - General General Appearance: Appears well In distress: None - Episiotomy/Laceration Site Condition: Well Approximated - Lochia Lochia Amount: Scant < 10 ml Lochia Color: Rubra/Red - Abdomen Description: Soft, Round Hernia Present: No Fundal Description: Firm, Midline Fundal Height: u/u - u/2 - Respiratory Respiratory Status: No respiratory distress - Extremities Upper extremity: Normal inspection Lower extremities: Normal inspection - Psychological Associated symptoms: Normal affect - bonding well with baby, Normal mood Objective-Diagnostic Laboratory: 12/16/16 05:50 12/15/16 12/16/16 13:30 05:50 WBC 22.5 H 16.7 H RBC 3.70 L 3.43 L Hgb 10.9 L 10.2 L Hct 33.3 L 30.4 L MCV 90 89 MCH 29.3 29.9 MCHC 32.6 33.7 RDW 14.4 H 14.5 H Plt Count 144 L 130 L Seg Neutrophils % 73.3 Lymphocytes % 18.2 Monocytes % 7.0 Eosinophils % 1.0 Basophils % 0.5 Absolute Neutrophils 12.3 H Absolute Lymphocytes 3.0 Absolute Monocytes 1.2 Absolute Eosinophils 0.2 Absolute Basophils 0.1 Assessment and Plan(PN) - Assessment and Plan (1) Anemia Qualifiers: Anemia type: unspecified type Qualified Code(s): D64.9 - Anemia, unspecified Is this a current diagnosis for this admission?: YesPlan: iron supplementation and increase iron in diet (2) Vaginal delivery Is this a current diagnosis for this admission?: YesPlan: continue stay anticipate d/c in the am (3) GDM, class A2 Is this a current diagnosis for this admission?: YesPlan: recheck glucose at pp visit - Time Spent with Patient Time with patient: Less than 15 minutes Medications reviewed and adjusted accordingly: Yes - Disposition Anticipated Discharge: Home Within: within 24 hours
[2016-12-16] MEDS: ACETAMINOPHEN WITH CODEINE #3 TABLET PO PRN (17:59)
[2016-12-17] MEDS: ACETAMINOPHEN WITH CODEINE #3 TABLET PO PRN (01:13)
[2016-12-17] MEDS: IBUPROFEN 800 MG TABLET PO SCH (06:12)
--- NOTE | 2016-12-17 07:56 | PDOC PROGRESS REPORT ---
Subjective-OB Subjective: Post Delivery Day: 21 year old. Denies any needs at this time Sitting up in bed, ready to go home, eating well, ambulating, no nausea, , wants circumcision, Physical Exam (OB) Vital Signs: Temp Pulse Resp BP Pulse Ox 97.9 F 86 18 109/66 99 12/16/16 20:20 12/16/16 20:20 12/16/16 20:20 12/16/16 20:20 12/16/16 20:20 Intake & Output 12/16/16 12/17/16 12/18/16 06:59 06:59 06:59 Intake Total 600 600 Balance 600 600 - Lochia Lochia Amount: Scant < 10 ml Lochia Color: Rubra/Red - Abdomen Description: Tender, Soft, Round Hernia Present: No Fundal Description: Firm, Midline Fundal Height: u/3 - u/4 Objective-Diagnostic Laboratory: 12/16/16 05:50 Assessment and Plan(PN) - Assessment and Plan (1) Vaginal delivery Is this a current diagnosis for this admission?: Yes (2) GDM, class A2 Is this a current diagnosis for this admission?: Yes (3) Anemia Qualifiers: Anemia type: unspecified type Qualified Code(s): D64.9 - Anemia, unspecified Is this a current diagnosis for this admission?: Yes - Time Spent with Patient Time with patient: Less than 15 minutes Medications reviewed and adjusted accordingly: Yes - Disposition Anticipated Discharge: Home Within: Other - home today
--- NOTE | 2016-12-17 08:00 | PDOC DISCHARGE SUMMARY ---
Final Diagnosis Discharge Date: 12/17/16 - Final Diagnosis (1) Vaginal delivery Is this a current diagnosis for this admission?: Yes (2) GDM, class A2 Is this a current diagnosis for this admission?: Yes (3) Anemia Is this a current diagnosis for this admission?: Yes Discharge Data - Discharge Medication Home Medications: Vit/Iron Fumarate/FA [ Tablet] 1 tab PO DAILY 11/09/16 Cetirizine HCl [Zyrtec] 10 mg PO PRN PRN 11/18/16 Gestational Age: 39.2 Reason(s) for Admission: Induction of Labor, Gestional Diabetes Procedures: NST, Ultrasound Intrapartum Procedure(s): Spontaneous Vaginal Delivery Complication(s): Laceration-Perineal Laceration-Degree: 2nd - [place] Data Baby 1 Male at 1 minute: 8 at 5 minutes: 9 Weight: 3.345 kg Home with Mother: Yes Complications: No - Diagnosis Test Laboratory: Temp Pulse Resp BP Pulse Ox 97.9 F 86 18 109/66 99 12/16/16 20:20 12/16/16 20:20 12/16/16 20:20 12/16/16 20:20 12/16/16 20:20 12/14/16 12/14/16 12/15/16 08:49 14:00 13:30 RBC 4.13 3.70 L Hgb 12.4 10.9 L Hct 36.5 33.3 L Urine Opiates Screen NEGATIVE 12/16/16 05:50 RBC 3.43 L Hgb 10.2 L Hct 30.4 L Urine Opiates Screen - Discharge information/Instructions Discharge Activity: Activity As Tolerated, No Lifting Over 10 Pounds, No Lifting /Push/Pulling, Pelvic Rest Discharge Diet: As Tolerated, Regular Disposition: HOME, SELF-CARE Follow [facility] with: [facility] in: 4, Weeks
[2016-12-17 08:56] LABS: HEMATOCRIT 31.8 % (36.0-47.0); HEMOGLOBIN 10.5 g/dL (12.0-15.5); HGB HCT DIFFERENCE -0.3; MEAN CORPUSCULAR HEMOGLOBIN 29.7 pg (27.0-33.4); MEAN CORPUSCULAR HGB CONC 33.1 g/dL (32.0-36.0); MEAN CORPUSCULAR VOLUME 90 fl (80-97); RED BLOOD COUNT 3.53 10^6/uL (3.72-5.28); RED CELL DISTRIBUTION WIDTH 14.5 % (11.5-14.0); WHITE BLOOD COUNT 14.1 10^3/uL (4.0-10.5)
[2016-12-17 08:57] VITALS: BP 126/73
[2016-12-17] MEDS: PRENATAL VITAMIN W-O CA NO5/FE FUMARATE/FA CAPSULE PO SCH (10:33)
[2016-12-17] MEDS: SENNOSIDES/DOCUSATE 8.6-50 MG 1 EACH TABLET PO SCH (10:33)
[2016-12-17] MEDS: FAMOTIDINE 20 MG TABLET PO SCH (10:33)
[2016-12-17] MEDS: DOCUSATE SODIUM 100 MG CAPSULE PO SCH (10:33)
[2016-12-17] MEDS: FERROUS SULFATE 325 MG TABLET PO SCH (10:33)
[2016-12-17] MEDS: BENZOCAINE/MENTHOL AEROSOL SPRAY 56 ML TOP PRN (10:43)
== END 2016-12-17 12:10 | disposition home or self-care (01) | DRG 775 ==
LOC: LR 07:07 → 2S 12-15 06:05
PROVIDERS: ADMIT Student in an Organized Health Care Education/Training Program; ATTEND Student in an Organized Health Care Education/Training Program
PROC: 3E0P7GC Introduction of Other Therapeutic Substance into Female Reproductive, Via Natural or Artificial Opening (ICD-10-PCS; 2016-12-14)
PROC: 10907ZC Drainage of Amniotic Fluid, Therapeutic from Products of Conception, Via Natural or Artificial Opening (ICD-10-PCS; 2016-12-14)
PROC: 4A1HXCZ Monitoring of Products of Conception, Cardiac Rate, External Approach (ICD-10-PCS; 2016-12-14)
PROC: 10E0XZZ Delivery of Products of Conception, External Approach (ICD-10-PCS; principal; 2016-12-15)
PROC: 0KQM0ZZ Repair Perineum Muscle, Open Approach (ICD-10-PCS; 2016-12-15)
DX: O24.429 Gestational diabetes mellitus in childbirth, unspecified control (principal); Z68.42 Body mass index [BMI] 45.0-49.9, adult; O99.02 Anemia complicating childbirth; D64.9 Anemia, unspecified; O70.1 Second degree perineal laceration during delivery; O69.81X0 Labor and delivery complicated by cord around neck, without compression, not applicable or unspecified; O99.214 Obesity complicating childbirth; E66.9 Obesity, unspecified; O76 Abnormality in fetal heart rate and rhythm complicating labor and delivery; Z3A.39 39 weeks gestation of pregnancy; Z37.0 Single live birth
CPT/HCPCS: 36415; 80307; 81005; 85025; 85027; 86592; 86850; 86900; 86901; 94760; J2590; J3490